=== PATIENT | male | born 1995 | race Caucasian/White ===

== ENCOUNTER 2017-09-20 15:06 | Emergency (ER) | payer MEDICAID ==
[~2017-09-20] VITALS: Ht 170.2 cm; Wt 67.1 kg
[2017-09-20 15:46] VITALS: BP 121/77
== END 2017-09-20 15:45 | disposition home or self-care (01) ==
LOC: ED 15:06
DX: A60.00 Herpesviral infection of urogenital system, unspecified (principal)
CPT/HCPCS: 87491; 87591